=== PATIENT | female | born 1990 | race African-American/Black ===

== ENCOUNTER 2019-05-22 09:41 | Inpatient (IN) ==
[2019-05-22] MEDS ORDERED: NS 1,000 ML IV ONE ×4 (10:15→17:27)
[2019-05-22 10:38] LABS: AMYLASE 127 U/L (20-200); LIPASE 14 U/L (13-60)
[2019-05-22 10:42] LABS: BASO# 0.01 X1000 (0.0-0.2); HEMATOCRIT 34.9 % (37.0-47.0); HEMOGLOBIN 12.1 g/dL (12.0-16.0); IMM GRAN# 0.07 X1000 (0.0-0.04); IMM GRAN% 0.3 % (0.0-0.5); LYMPH% 5.6 % (20.5-51.1); MCH 28.5 PG (27-31); MCHC 34.7 g/dL (33-37); MCV 82.1 FL (81-99); MONO# 0.71 X1000 (0.11-0.59); MONO% 3.3 % (1.7-9.3); MPV 10.8 FL (7.4-10.4); NEUT# 19.25 X1000 (1.4-6.5); NEUT% 90.8 % (42.2-75.2); PLT 346 X1000 (130-400); RBC 4.25 XMIL (4.2-5.4); RDW 12.2 % (11.5-14.5); WBC 21.24 X1000 (4.8-10.8)
[2019-05-22 10:45] LABS: CHLORIDE 99 mmol/L (98-107); POTASSIUM 3.4 mmol/L (3.5-5.1); SODIUM 134 mmol/L (136-145)
[2019-05-22 11:03] LABS: AGAP 14; ALB/GLOB RATIO 1.2; ALBUMIN 3.9 g/dL (3.5-5.0); ALKALINE PHOSPHATASE 38 U/L (32-104); BUN 8 mg/dL (8-22); CALCIUM 9.3 mg/dL (8.8-10.2); COSMO 268; CREATININE 0.7 mg/dL (0.5-0.9); GLUCOSE 121 mg/dL (70-104); GOT 19 U/L (10-30); GPT 13 U/L (10-36); TCO2 21 mmol/L (25-35); TOTAL PROTEIN 7.2 g/dL (6.3-8.3)
[2019-05-22] MEDS ORDERED: SODIUM CHLORIDE 0.9% INJ ONE (11:08)
[2019-05-22] MEDS ORDERED: TYLENOL PO ONE (11:08)
[2019-05-22] MEDS ORDERED: PHENERGAN IV ONE (11:08)
--- NOTE | 2019-05-22 12:24 | Diag Imaging Result Doc PS360 ---
EXAM: US OBS COMPLETE < 14 WKS 05/22/2019 HISTORY: abd pain TECHNIQUE: Endovaginal scan COMMENT: There is an intrauterine gestational sac with yolk sac and fetus. The crown-rump length is consistent with a gestational age of nine weeks five days +/- 5 days. The heart rate is 156 bpm. By history the right ovary is surgically absent. There are no abnormal fluid collections. The left ovary contains multiple follicles but is otherwise normal in appearance. IMPRESSION: Viable intrauterine gestation at nine weeks five days by ultrasound, RAJ 12/20/2019. Electronically signed by Xavier Woods 05/22/2019 12:22 PM
--- NOTE | 2019-05-22 12:50 | PROVIDER DOCUMENTATION ---
This chart was entered by Jeremías Brown Scribe, acting as scribe for Jn Lawrence DO. HPI-Abdominal Pain/GI Problem - General Chief Complaint: Chest Pain Stated Complaint: CP,ABD PAIN,VOMITING,9 WKS Time Seen by Provider: 05/22/19 10:05 Allergies/Adverse Reactions: Patient Allergies Allergy/AdvReac Type Severity Reaction Status Date / Time ibuprofen Allergy Mild HIVES Verified 05/22/19 10:16 Home Medications: Home Medication List Medication Instructions Recorded Confirmed Last Taken Type Ondansetron Odt [Zofran 4 mg Odt] 4 mg PO Q6H PRN PRN #10 tab 05/20/19 05/22/19 Unknown Rx Pnv No.95/Ferrous Fum/Folic AC 1 ea PO DAILY 05/22/19 05/22/19 Unknown History [ Vitamin Tablet] Promethazine [Phenergan] 25 mg PO Q6H PRN PRN 05/22/19 05/22/19 Unknown History - History of Present Illness-ABD Nature of Presenting Problems: Ms Sarah is 28 yo F who c/o of Nausea and Vomiting for 3 weeks. She states she is 9 weeks with this her third and is taking Zofran and Phenergan. She reports 5 or more episodes of vomiting per day and says today she has vomited 7 times today. She also reports some Chest Pain that is worse with deep breathing. She says her stomach is achy. She denies fever. She reports her OB said come to the ER for IV fluid therapy. Abdominal Pain Onset Location: reports: generalized abdomen Pain Radiation: reports: no radiation Quality of Pain: reports: aching Severity in ED: reports: mild Onset/Duration: reports: other (3 weeks) Timing: reports: still present Activities at Onset: reports: none Exposure to sick contacts?: No Modifying Factors: improves with: nothing Associated Symptoms: reports: chest pain, diarrhea (loose stools), nausea, vomiting. denies: dizziness, fever/chills, sinus congestion/drainage, rash Review of Systems - Adult - REVIEW OF SYSTEMS - ADULT Constitutional: denies: chills, fever Eyes: reports: no symptoms reported Ears, Nose, Mouth & Throat: reports: no symptoms reported Cardiovascular: reports: chest pain. denies: edema, palpitations Respiratory: denies: cough, shortness of breath, wheezing Gastrointestinal: reports: abdominal pain, nausea, vomiting. denies: diarrhea Genitourinary: denies: dysuria, flank pain, urinary retention Musculoskeletal: denies: back pain, neck pain Integumentary: denies: hair loss, itching Neurological: denies: dizziness/vertigo, headache/migraines Psychiatric: reports: no symptoms reported Endocrine: reports: no symptoms reported Hematologic/Lymphatic: reports: no symptoms reported Allergic/Immunologic: reports: no symptoms reported All Other Systems: Reviewed and Negative Past History - Adult - PAST MEDICAL HISTORY-ADULT Review of Records: reports: Old Records Reviewed, Nursing Assessment Review, Medications Reviewed Major Childhood Illnesses: reports: denies history Cardiovascular: reports: denies history Respiratory: reports: denies history Gastrointestinal: reports: other (hyperemesis) Obstetrical/Gynecological: reports: denies history Genitourinary: reports: denies history Musculoskeletal: reports: denies history Neurological: reports: denies history Psychiatric: reports: denies history Endocrine/Immune: reports: denies history Other Conditions: reports: denies history Additional History: ovarian cysts; early cervical CA - PRIOR SURGERIES/PROCEDURES Surgical/Procedure History: reports: other (oopherectomy) - IMMUNIZATION STATUS Childhood Immunizations: See Nurse Assessment Flu Vaccine: See Nurse Assessment - FAMILY HISTORY Family History: reviewed, not pertinent - SOCIAL HISTORY Smoking: non-smoker Substance Use: none/never Living Situation: family Physical Exam-General - PHYSICAL EXAM-ADULT Initial Vital Signs Reviewed: Yes - CONSTITUTIONAL General Appearance: appears well, alert, no apparent distress - EYES Eyes: PERRL/EOMI, pink conjunctivae - HEAD, EARS, NOSE, MOUTH & THROAT HENMT: moist mucous membranes, normal ENT inspection - NECK Neck: non-tender, full range of motion, supple, normal inspection - RESPIRATORY Respiratory: lungs clear, normal breath sounds, no pleuratic chest pain, no respiratory distress, no accessory muscle use. negative: chest non-tender (Left chest wall tender to palpation) - CARDIOVASCULAR Cardiovascular: normal peripheral pulses, regular rate, rhythm - GASTROINTESTINAL (ABDOMEN) Abdominal Exam: normal bowel sounds, soft - MUSCULOSKELETAL Back Exam: normal inspection, no CVA tenderness, no vertebral tenderness Extremity: normal range of motion, non-tender, normal gait, normal inspection - SKIN Integumentary: normal color, normal turgor, warm/dry - NEUROLOGIC Neurologic: grossly normal, no motor/sensory deficits - PSYCHIATRIC Psych/Mental Status: normal mood/affect, normal thought content, normal thought process, oriented x 3 Progress - PLAN OF CARE/RESULTS Progress/Plan/Lab Results: Vital Signs - 8 hr 05/22/19 09:49 Temperature 99.8 F H Pulse Rate 70 Respiratory Rate 18 Blood Pressure 128/42 O2 Sat by Pulse Oximetry 99 Result Diagrams: 05/22/19 10:09 05/22/19 10:09 - EKG 1 Time of EKG reading by physician:: 09:55 EKG Read and Signed by:: Jn Lawrence EKG Interpretation (*Must complete 3 of following elements*): Abnormal Rate: 66 Rhythm: Sinus with sinus arrhythmia with short VT Comments: oterwise normal - ULTRASOUND (By Radiology) 1 US Study: Pelvic Impression: Normal ( EXAM: US OBS COMPLETE < 14 WKS 05/22/2019 HISTORY: abd pain TECHNIQUE: Endovaginal scan COMMENT: There is an intrauterine gestational sac with yolk sac and fetus. The crown-rump length is consistent with a gestational age of nine weeks five days +/- 5 days. The heart rate is 156 bpm. By history the right ovary is surgically absent. There are no abnormal fluid collections. The left ovary contains multiple follicles but is otherwise normal in appearance. IMPRESSION: Viable intrauterine gestation at nine weeks five days by ultrasound, RAJ 12/20/2019. Electronically signed by Xavier Woods 05/22/2019 12:22 PM 05/22/19 1222 Interpreting Physician: Xavier Woods MD Dictated Date/Time: 05/22/19 1220 cc: Jn Lawrence DO; None,PCP) - CONSULTS/PCP/HOSPITALIST Notification #1 *Consult/PCP/Hospitalist*: Hospitalist spoke with Gina MOREIRA Time Discussed: 11:26 Reason/Comments: Admission Consult Disposition: Admit (Request to speak with OB first) #2 Consult: OB- Time Discussed: 11:30 Reason/Comments: Plan of Care with review of HPI Consult Disposition: other (Request Ultrasound) Departure - Departure Date of Disposition Decision: 05/22/19 Time of Disposition Decision: 12:49 DIAGNOSIS: Enteritis, Hyperemesis gravidarum Disposition: ADMITTED INPATIENT 09 Certified Medical Emergency: Emergent Condition: Fair Referrals and Follow-Ups: None,PCP [Primary Care Provider] - - Critical Care Note This patient required my direct & personal management of CC.: No Attestation - Physician/ BABS Attestation Patient care was provided by Advanced Practice Provider:: No The physician spent face to face time with patient:: Yes Advanced Practice Provider documentation review:: Supervising physician onsite and consulted in the evaluation and care of this patient. The physician did have a face to face encounter with the patient. This chart was documented by the indicated scribe, (Jeremías Brown Scribe) and accurately reflects the services I performed and decisions made by me, Jn Lawrence DO, as attested by the provider's signature.
[2019-05-22 14:42] LABS: INR 1.04; PROTIME 13.8 Seconds (11.0-16.0)
[2019-05-22 14:43] LABS: PTT 24.3 Seconds (22.3-41.8)
[2019-05-22] MEDS: ZOFRAN IV PRN ×2 (14:43→20:40)
[2019-05-22] MEDS: ZANTAC 50 MG in NS 50 ML IV SCH (18:09)
--- NOTE | 2019-05-22 18:51 | HISTORY AND PHYSICAL ---
The patient is a 28-year-old 3, para 2, at 9 weeks gestation who presents to the emergency room complaining of nausea and vomiting for 3 weeks, abdominal pain and epigastric pain. She was evaluated, found to have a specific gravity of 1.030, found to have a white count of 2100 with a left shift, other labs relatively normal and she was unable to void. I saw her 10 hours later. She was afebrile in the emergency room. She experienced none of these complaints in her 1st 2 pregnancies. PREVIOUS MEDICAL HISTORY: Negative. PREVIOUS SURGICAL HISTORY: Is pertinent for cystectomy followed by an oophorectomy for ovarian cyst disease several years ago. OB HISTORY: Pertinent for 2 vaginal deliveries uncomplicated pregnancies. VISCOSITY INSPECTOR HISTORY: Is unremarkable. FAMILY HISTORY: Noncontributory. SOCIAL HISTORY: Positive for tobacco. No alcohol or drugs. MEDICINES: vitamins, Phenergan and ODT Zofran. ALLERGIES: Ibuprofen. PHYSICAL EXAM: This is well-developed, thin woman appearing her stated age. Skin is without turgor. Capillary reflex is slow. HEENT: Grossly normal. ABDOMEN: Soft throughout. Point of maximal tenderness is the epigastric area and some pelvic crampiness. No masses. Positive for tympany. No bladder distention. EXTREMITIES: Without clubbing, cyanosis, or edema. LUNGS: Are unlabored breathing. HEART: Regular rate and rhythm. ASSESSMENT: A 28-year-old 3, para 2, 9 weeks gestation with epigastric pain, 3-week history of nausea, vomiting, recalcitrant to Phenergan and Zofran. 1. Dehydration. Physical exam indicates dehydration. The patient has been unable to void since presented to the emergency room early this morning. Currently fluids were running at 125. I bolused a liter of fluid and will run overnight at 175 and reevaluate in the morning. Will start Zofran IV and Zantac IV for epigastric pain. 2. Nutrition status is guarded, states she has been unable to eat for 3 weeks. She is currently 102 pounds with body mass index of 18.6 from her visit on 05/18. 3. Hospital observation. Repeat CBC in the a.m.
[2019-05-22] MEDS: NS 1,000 ML IV SCH (20:40)
[2019-05-23] MEDS: ZANTAC 50 MG in NS 50 ML IV SCH (00:59)
[2019-05-23] MEDS: NS 1,000 ML IV SCH ×4 (00:59→22:04)
[2019-05-23] MEDS: ZOFRAN IV PRN ×4 (04:57→19:56)
[2019-05-23 05:33] LABS: URINE SOURCE CLEAN CATCH
[2019-05-23 06:10] LABS: BILIRUBIN URINE NEGATIVE (NEGATIVE); BLOOD URINE NEGATIVE (NEGATIVE); COLOR YELLOW; GLUCOSE URINE NEGATIVE (NEGATIVE); KETONE URINE >150 mg/dL (NEGATIVE); LEUKOCYTES URINE NEGATIVE (NEGATIVE); NITRITE URINE NEGATIVE (NEGATIVE); PROTEIN URINE TRACE mg/dL (NEGATIVE); SP GRAVITY URINE 1.021; TURBIDITY URINE HAZY (CLEAR); UROBILINOGEN URINE NORMAL (NORMAL)
[2019-05-23 07:05] LABS: URINE BACTERIA NEGATIVE /HPF; URINE RBC <10 /HPF (<10); URINE WBC <10 /HPF (<10)
[2019-05-23 07:37] LABS: URINE CASTS NONE SEEN; URINE CRYSTALS NONE SEEN; URINE SMALL ROUND CELLS NONE SEEN; URINE YEAST NONE SEEN
[2019-05-23 07:38] LABS: UR EPITHELIAL CELLS <10 /HPF (<10)
[2019-05-23 07:43] LABS: BASO# 0.02 X1000 (0.0-0.2); BASO% 0.1 % (0.0-0.8); EOS# 0.01 X1000 (0.0-0.7); EOS% 0.1 % (0.0-10.0); HEMOGLOBIN 10.4 g/dL (12.0-16.0); IMM GRAN# 0.04 X1000 (0.0-0.04); IMM GRAN% 0.3 % (0.0-0.5); LYMPH% 18.2 % (20.5-51.1); MCH 28.3 PG (27-31); MCHC 33.5 g/dL (33-37); MCV 84.5 FL (81-99); MONO# 0.87 X1000 (0.11-0.59); MONO% 5.7 % (1.7-9.3); MPV 11.1 FL (7.4-10.4); NEUT# 11.63 X1000 (1.4-6.5); NEUT% 75.6 % (42.2-75.2); PLT 281 X1000 (130-400); RBC 3.67 XMIL (4.2-5.4); RDW 12.4 % (11.5-14.5); WBC 15.37 X1000 (4.8-10.8)
--- NOTE | 2019-05-23 07:56 | OB/GYN PROGRESS NOTE ---
- Subjective HD1 vssaf abd s/sl tender throughout, no distention, rebound or gaurding ext no CCE skin dry, turgor improved WBC 22+, now 15. L shift nearly resolved A IUP 9wks w/ N/V/dehydration and elevated wbc ct 1. continues w/N/V, continue hydration 2. continue epigastric cx, switch Zantac to Protonix 3. WBC resolving, continue obs. OB Physical Exam Vital Signs - 8 hr 05/22/19 23:53 05/23/19 04:00 Temperature 98.4 F 98.2 F Pulse Rate 70 64 Respiratory Rate 20 20 Blood Pressure 135/71 99/63 O2 Sat by Pulse Oximetry 100 100 - CONSTITUTIONAL General Appearance: appears well, no apparent distress Active Medications Generic Name Dose Route Start Last Admin Trade Name Freq PRN Reason Stop Dose Admin Acetaminophen 650 mg 05/23/19 07:23 Tylenol [place] Q4H PRN PRN Pain Sodium Chloride 1,000 mls @ 175 mls/hr 05/22/19 20:00 05/23/19 00:59 Ns IV 175 mls/hr .Q5H43M CROW Administration Ondansetron HCl 4 mg 05/22/19 13:24 05/23/19 04:57 Zofran IV 4 mg Q4H PRN PRN Administration Nausea And Vomiting Pantoprazole Sodium 40 mg 05/23/19 07:30 Protonix IV Q12H [facility] Protocol Sodium Chloride 10 ml 05/23/19 07:30 Sodium Chloride 0.9% INJ DIRECTED [facility] Laboratory Results - last 24 hr 05/22/19 05/22/19 05/22/19 05:20 10:09 10:09 WBC RBC Hgb Hct MCV MCH MCHC RDW Std Deviation Plt Count MPV Immature Gran % (Auto) Neut % (Auto) Lymph % (Auto) [place] % (Auto) Eos % (Auto) Baso % (Auto) Immature Gran # (Auto) Neut # (Auto) Lymph # (Auto) [place] # (Auto) Eos # (Auto) Baso # (Auto) PT INR PTT (Actin FS) Sodium 134 L Potassium 3.4 L Chloride 99 Carbon Dioxide 21 L Anion Gap 14 BUN 8 Creatinine 0.7 BUN/Creatinine Ratio 11 Glucose 121 H Calculated Osmolality 268 Calcium 9.3 Magnesium Total Bilirubin 0.50 AST 19 ALT 13 Alkaline Phosphatase 38 Creatine Kinase Troponin T High Sens Total Protein 7.2 Albumin 3.9 Globulin 3.3 Albumin/Globulin Ratio 1.2 Amylase 127 Lipase 14 Plasma Lactate Ser , Semi-Qnt Urine Source CLEAN CATCH Urine Color YELLOW Urine Turbidity HAZY Urine pH 6.0 Ur Specific [place] 1.021 Urine Protein TRACE A Ur Glucose (Stick) NEGATIVE Ur Ketones (Stick) >150 Urine Blood NEGATIVE Urine Nitrite NEGATIVE Urine Bilirubin NEGATIVE Urobilinogen Dipstick NORMAL Urine Leukocytes NEGATIVE Urine WBC (Auto) <10 Urine RBC (Auto) <10 U Epithel Cells (Auto) <10 Urine Bacteria (Auto) NEGATIVE Urine Crystals NONE SEEN Small Round Cells NONE SEEN Urine Casts NONE SEEN Urine Yeast-like Cells NONE SEEN 05/22/19 05/22/19 05/22/19 10:09 10:09 10:09 WBC 21.24 H RBC 4.25 Hgb 12.1 Hct 34.9 L MCV 82.1 MCH 28.5 MCHC 34.7 RDW Std Deviation 12.2 Plt Count 346 MPV 10.8 H Immature Gran % (Auto) 0.3 Neut % (Auto) 90.8 H Lymph % (Auto) 5.6 L [place] % (Auto) 3.3 Eos % (Auto) 0.0 Baso % (Auto) 0.0 Immature Gran # (Auto) 0.07 H Neut # (Auto) 19.25 H Lymph # (Auto) 1.20 [place] # (Auto) 0.71 H Eos # (Auto) 0.00 Baso # (Auto) 0.01 PT INR PTT (Actin FS) Sodium Potassium Chloride Carbon Dioxide Anion Gap BUN Creatinine BUN/Creatinine Ratio Glucose Calculated Osmolality Calcium Magnesium Total Bilirubin AST ALT Alkaline Phosphatase Creatine Kinase 47 Troponin T High Sens Total Protein Albumin Globulin Albumin/Globulin Ratio Amylase Lipase Plasma Lactate Ser , Semi-Qnt 913239.0 Urine Source Urine Color Urine Turbidity Urine pH Ur Specific [place] Urine Protein Ur Glucose (Stick) Ur Ketones (Stick) Urine Blood Urine Nitrite Urine Bilirubin Urobilinogen Dipstick Urine Leukocytes Urine WBC (Auto) Urine RBC (Auto) U Epithel Cells (Auto) Urine Bacteria (Auto) Urine Crystals Small Round Cells Urine Casts Urine Yeast-like Cells 05/22/19 05/22/19 05/22/19 10:09 10:09 10:09 WBC RBC Hgb Hct MCV MCH MCHC RDW Std Deviation Plt Count MPV Immature Gran % (Auto) Neut % (Auto) Lymph % (Auto) [place] % (Auto) Eos % (Auto) Baso % (Auto) Immature Gran # (Auto) Neut # (Auto) Lymph # (Auto) [place] # (Auto) Eos # (Auto) Baso # (Auto) PT 13.8 INR 1.04 PTT (Actin FS) 24.3 Sodium Potassium Chloride Carbon Dioxide Anion Gap BUN Creatinine BUN/Creatinine Ratio Glucose Calculated Osmolality Calcium Magnesium 1.9 Total Bilirubin AST ALT Alkaline Phosphatase Creatine Kinase Troponin T High Sens 6 Total Protein Albumin Globulin Albumin/Globulin Ratio Amylase Lipase Plasma Lactate Ser , Semi-Qnt Urine Source Urine Color Urine Turbidity Urine pH Ur Specific [place] Urine Protein Ur Glucose (Stick) Ur Ketones (Stick) Urine Blood Urine Nitrite Urine Bilirubin Urobilinogen Dipstick Urine Leukocytes Urine WBC (Auto) Urine RBC (Auto) U Epithel Cells (Auto) Urine Bacteria (Auto) Urine Crystals Small Round Cells Urine Casts Urine Yeast-like Cells 05/22/19 05/22/19 05/22/19 15:10 17:24 20:26 WBC RBC Hgb Hct MCV MCH MCHC RDW Std Deviation Plt Count MPV Immature Gran % (Auto) Neut % (Auto) Lymph % (Auto) [place] % (Auto) Eos % (Auto) Baso % (Auto) Immature Gran # (Auto) Neut # (Auto) Lymph # (Auto) [place] # (Auto) Eos # (Auto) Baso # (Auto) PT INR PTT (Actin FS) Sodium Potassium Chloride Carbon Dioxide Anion Gap BUN Creatinine BUN/Creatinine Ratio Glucose Calculated Osmolality Calcium Magnesium Total Bilirubin AST ALT Alkaline Phosphatase Creatine Kinase Troponin T High Sens Total Protein Albumin Globulin Albumin/Globulin Ratio Amylase Lipase Plasma Lactate 1.1 0.8 0.6 Ser , Semi-Qnt Urine Source Urine Color Urine Turbidity Urine pH Ur Specific [place] Urine Protein Ur Glucose (Stick) Ur Ketones (Stick) Urine Blood Urine Nitrite Urine Bilirubin Urobilinogen Dipstick Urine Leukocytes Urine WBC (Auto) Urine RBC (Auto) U Epithel Cells (Auto) Urine Bacteria (Auto) Urine Crystals Small Round Cells Urine Casts Urine Yeast-like Cells 05/23/19 06:47 WBC 15.37 H RBC 3.67 L Hgb 10.4 L Hct 31.0 L MCV 84.5 MCH 28.3 MCHC 33.5 RDW Std Deviation 12.4 Plt Count 281 MPV 11.1 H Immature Gran % (Auto) 0.3 Neut % (Auto) 75.6 H Lymph % (Auto) 18.2 L [place] % (Auto) 5.7 Eos % (Auto) 0.1 Baso % (Auto) 0.1 Immature Gran # (Auto) 0.04 Neut # (Auto) 11.63 H Lymph # (Auto) 2.80 [place] # (Auto) 0.87 H Eos # (Auto) 0.01 Baso # (Auto) 0.02 PT INR PTT (Actin FS) Sodium Potassium Chloride Carbon Dioxide Anion Gap BUN Creatinine BUN/Creatinine Ratio Glucose Calculated Osmolality Calcium Magnesium Total Bilirubin AST ALT Alkaline Phosphatase Creatine Kinase Troponin T High Sens Total Protein Albumin Globulin Albumin/Globulin Ratio Amylase Lipase Plasma Lactate Ser , Semi-Qnt Urine Source Urine Color Urine Turbidity Urine pH Ur Specific [place] Urine Protein Ur Glucose (Stick) Ur Ketones (Stick) Urine Blood Urine Nitrite Urine Bilirubin Urobilinogen Dipstick Urine Leukocytes Urine WBC (Auto) Urine RBC (Auto) U Epithel Cells (Auto) Urine Bacteria (Auto) Urine Crystals Small Round Cells Urine Casts Urine Yeast-like Cells Microbiology 05/22/19 15:10 Blood Culture - Preliminary Blood 05/22/19 15:15 Blood Culture - Preliminary Blood 05/22/19 10:57 Influenza Screen - Final Nasopharyngeal
[2019-05-23] MEDS: SODIUM CHLORIDE 0.9% INJ SCH (08:34)
[2019-05-23] MEDS: PROTONIX IV SCH ×2 (08:34→19:23)
[2019-05-23] MEDS: TYLENOL PR PRN ×4 (08:34→19:56)
[2019-05-23] MEDS ORDERED: AMBIEN PO ONE (18:59)
[2019-05-24] MEDS: TYLENOL PR PRN ×4 (00:55→19:24)
[2019-05-24] MEDS: ZOFRAN IV PRN ×3 (00:55→12:22)
[2019-05-24] MEDS: SODIUM CHLORIDE 0.9% INJ SCH (08:11)
[2019-05-24] MEDS: PROTONIX IV SCH ×2 (08:11→22:42)
[2019-05-24 09:49] LABS: BASO# 0.02 X1000 (0.0-0.2); BASO% 0.2 % (0.0-0.8); EOS# 0.01 X1000 (0.0-0.7); EOS% 0.1 % (0.0-10.0); HEMATOCRIT 28.4 % (37.0-47.0); HEMOGLOBIN 9.7 g/dL (12.0-16.0); IMM GRAN# 0.04 X1000 (0.0-0.04); IMM GRAN% 0.3 % (0.0-0.5); LYMPH# 1.92 X1000 (1.2-3.4); LYMPH% 15.6 % (20.5-51.1); MCH 28.4 PG (27-31); MCHC 34.2 g/dL (33-37); MCV 83.3 FL (81-99); MONO# 0.74 X1000 (0.11-0.59); MPV 10.9 FL (7.4-10.4); NEUT% 77.8 % (42.2-75.2); PLT 249 X1000 (130-400); RBC 3.41 XMIL (4.2-5.4); RDW 11.9 % (11.5-14.5); WBC 12.33 X1000 (4.8-10.8)
[2019-05-24] MEDS: NS 1,000 ML IV SCH ×6 (10:15→23:38)
[2019-05-24 16:26] LABS: AGAP 9; BUN 1 mg/dL (8-22); CALCIUM 7.9 mg/dL (8.8-10.2); CHLORIDE 103 mmol/L (98-107); COSMO 254; CREATININE 0.4 mg/dL (0.5-0.9); ESTIMATED GFR > 60; GLUCOSE 88 mg/dL (70-104); POTASSIUM 2.6 mmol/L (3.5-5.1); SODIUM 129 mmol/L (136-145); TCO2 17 mmol/L (25-35)
[2019-05-24] MEDS ORDERED: PHENERGAN IV PRN (17:37)
[2019-05-24] MEDS ORDERED: POTASSIUM CHLORIDE 40 MEQ in D5 NS 1,000 ML IV SCH (17:45)
[2019-05-24] MEDS: SODIUM CHLORIDE 0.9% INJ PRN (18:57)
[2019-05-24] MEDS: POTASSIUM CHLORIDE 20 MEQ/SWI 20 MEQ/100 ML IVPB IV SCH ×2 (18:58→22:41)
[2019-05-25] MEDS: POTASSIUM CHLORIDE 20 MEQ/SWI 20 MEQ/100 ML IVPB IV SCH (00:50)
[2019-05-25] MEDS: NS 1,000 ML IV SCH ×2 (04:46→10:47)
--- NOTE | 2019-05-25 07:23 | PROVIDER PROGRESS NOTE ---
- Subjective Ms. Sarah is a 28YOBF at 9 weeks gestation that presented to [facility] for inability to keep anything down for the past 3 weeks. Today she feels better with her last vomitting episode being 8pm last night. This is the longest she's gone without vomitting for the past 3 weeks. Vomitus was intermittently mildly bloody at home, but no blood in vomitus during admission. Pt reports chills, dizziness upon standing, weakness, abd pain localized to lower abdomen and mid epigastric region, heart burn, N/V. Pt denies diarrhea and sx at this time, but reports diarrhea just before emesis started. Currently BMs irregular. Pt also denies sick contacts, viral prodrome, or infectious etiology prior to sx onset or currently. Physical Exam Objective Vital Signs - 8 hr 05/24/19 23:44 05/25/19 04:18 Temperature 98.9 F 99.0 F Pulse Rate 66 66 Respiratory Rate 18 16 Blood Pressure 98/53 113/64 O2 Sat by Pulse Oximetry 100 99 - Constitutional General Appearance: no apparent distress, thin - HEAD, EARS, NOSE, MOUTH & THROAT HENMT: normocephalic/atraumatic - NECK Neck: normal inspection - RESPIRATORY Respiratory: lungs clear, normal breath sounds, no respiratory distress - CARDIOVASCULAR Cardiovascular: normal peripheral pulses, regular rate, rhythm, no edema, no gallop, no murmur, other (capillary refill 3s.) - GASTROINTESTINAL (ABDOMEN) Abdominal Exam: normal bowel sounds, tenderness (diffuse abdominal tenderness. no guarding.) - MUSCULOSKELETAL Extremity: no pedal edema - SKIN Integumentary: normal color, normal turgor, diaphoresis Active Medications Generic Name Dose Route Start Last Admin Trade Name Freq PRN Reason Stop Dose Admin Acetaminophen 650 mg 05/23/19 07:23 05/24/19 19:24 Tylenol [place] 650 mg Q4H PRN PRN Administration Pain Sodium Chloride 1,000 mls @ 175 mls/hr 05/22/19 20:00 05/25/19 04:46 Ns IV 175 mls/hr .Q5H43M CROW Administration Ondansetron HCl 4 mg 05/25/19 07:15 Zofran IV Q4H PRN CROW Pantoprazole Sodium 40 mg 05/23/19 07:30 05/24/19 22:42 Protonix IV 40 mg Q12H CROW Administration Protocol Promethazine HCl 25 mg 05/25/19 07:01 Phenergan IV Q4H PRN CROW Sodium Chloride 10 ml 05/23/19 07:30 05/24/19 08:11 Sodium Chloride 0.9% INJ 10 ml DIRECTED CROW Administration Sodium Chloride 10 ml 05/24/19 17:37 05/24/19 18:57 Sodium Chloride 0.9% INJ 10 ml PRN PRN Administration Dilute Phenergan for IV use Laboratory Results - last 24 hr 05/24/19 05/24/19 09:22 15:25 WBC 12.33 H RBC 3.41 L Hgb 9.7 L Hct 28.4 L MCV 83.3 MCH 28.4 MCHC 34.2 RDW Std Deviation 11.9 Plt Count 249 MPV 10.9 H Immature Gran % (Auto) 0.3 Neut % (Auto) 77.8 H Lymph % (Auto) 15.6 L [place] % (Auto) 6.0 Eos % (Auto) 0.1 Baso % (Auto) 0.2 Immature Gran # (Auto) 0.04 Neut # (Auto) 9.60 H Lymph # (Auto) 1.92 [place] # (Auto) 0.74 H Eos # (Auto) 0.01 Baso # (Auto) 0.02 Sodium 129 L Potassium 2.6 L Chloride 103 Carbon Dioxide 17 L Anion Gap 9 BUN 1 L Creatinine 0.4 L Estimated GFR/1.73 m2 > 60 BUN/Creatinine Ratio 3 Glucose 88 Calculated Osmolality 254 Calcium 7.9 L Microbiology 05/22/19 15:15 Blood Culture - Preliminary Blood NO GROWTH AFTER 48 HOURS 05/22/19 15:10 Blood Culture - Preliminary Blood NO GROWTH AFTER 48 HOURS - Assessment & Plan (1) Hyperemesis gravidarum Status: Acute Plan: Pt states improved sx today, but still unable to keep food down. Continue IVF resuscitation. Correct electrolyte imbalance with KCl, Magnesium sulfate and NS. Increase anti-emetic frequency for more aggressive N/V tx. NPO and progress to BRAT diet with Trang omer as tolerated. PPI for heartburn sx.
[2019-05-25 07:42] LABS: AGAP 8; ALB/GLOB RATIO 1.3; ALBUMIN 2.6 g/dL (3.5-5.0); ALKALINE PHOSPHATASE 27 U/L (32-104); BUN 1 mg/dL (8-22); CALCIUM 7.7 mg/dL (8.8-10.2); CHLORIDE 110 mmol/L (98-107); COSMO 267; CREATININE 0.5 mg/dL (0.5-0.9); ESTIMATED GFR > 60; GLUCOSE 82 mg/dL (70-104); GOT 159 U/L (10-30); GPT 214 U/L (10-36); MAGNESIUM 1.4 mg/dL (1.5-2.7); POTASSIUM 3.1 mmol/L (3.5-5.1); SODIUM 136 mmol/L (136-145); TCO2 18 mmol/L (25-35); TOTAL PROTEIN 4.6 g/dL (6.3-8.3)
[2019-05-25 07:51] LABS: BASO# 0.03 X1000 (0.0-0.2); BASO% 0.3 % (0.0-0.8); EOS# 0.03 X1000 (0.0-0.7); EOS% 0.3 % (0.0-10.0); HEMATOCRIT 25.8 % (37.0-47.0); HEMOGLOBIN 8.7 g/dL (12.0-16.0); IMM GRAN# 0.02 X1000 (0.0-0.04); IMM GRAN% 0.2 % (0.0-0.5); MCH 28.2 PG (27-31); MCHC 33.7 g/dL (33-37); MCV 83.5 FL (81-99); MONO# 0.61 X1000 (0.11-0.59); MONO% 6.5 % (1.7-9.3); MPV 11.1 FL (7.4-10.4); NEUT# 5.52 X1000 (1.4-6.5); NEUT% 58.7 % (42.2-75.2); PLT 240 X1000 (130-400); RBC 3.09 XMIL (4.2-5.4); RDW 11.9 % (11.5-14.5); WBC 9.41 X1000 (4.8-10.8)
[2019-05-25] MEDS: PHENERGAN IV SCH ×4 (10:47→23:23)
[2019-05-25] MEDS: TYLENOL PR PRN ×2 (10:47→23:10)
[2019-05-25] MEDS: SODIUM CHLORIDE 0.9% INJ PRN ×2 (10:47→23:23)
[2019-05-25] MEDS: SODIUM CHLORIDE 0.9% INJ SCH ×2 (10:48→21:40)
[2019-05-25] MEDS: PROTONIX IV SCH ×2 (10:48→21:40)
[2019-05-25] MEDS ORDERED: MAGNESIUM SULFATE 2 GM/S.W.I. 2 GM/50 ML IVPB IV ONE ×2 (10:56→12:00)
[2019-05-25] MEDS ORDERED: NS + KCL 40 MEQ 1,000 ML IV SCH ×2 (11:00→13:00)
[2019-05-25] MEDS ORDERED: VENOFER 500 MG in NS 250 ML IV ONE (12:00)
[2019-05-25] MEDS: ZOFRAN IV SCH ×3 (12:51→21:16)
[2019-05-25] MEDS ORDERED: BLISTEX MEDICATED BERRY LIP BALM TOP PRN (18:48)
[2019-05-25 23:11] LABS: AGAP 14; ALB/GLOB RATIO 1.2; ALBUMIN 2.8 g/dL (3.5-5.0); ALKALINE PHOSPHATASE 30 U/L (32-104); BUN 2 mg/dL (8-22); CALCIUM 7.8 mg/dL (8.8-10.2); CHLORIDE 110 mmol/L (98-107); COSMO 271; CREATININE 0.6 mg/dL (0.5-0.9); ESTIMATED GFR > 60; GLUCOSE 57 mg/dL (70-104); GOT 121 U/L (10-30); GPT 233 U/L (10-36); MAGNESIUM 1.9 mg/dL (1.5-2.7); POTASSIUM 3.4 mmol/L (3.5-5.1); SODIUM 139 mmol/L (136-145); TCO2 15 mmol/L (25-35); TOTAL BILIRUBIN 0.33 mg/dL (0.20-1.00); TOTAL PROTEIN 5.1 g/dL (6.3-8.3)
[2019-05-26] MEDS: ZOFRAN IV SCH ×4 (01:16→13:59)
[2019-05-26] MEDS: D5 LR IV SCH ×4 (02:06→20:30)
[2019-05-26] MEDS: POTASSIUM CHLORIDE IV SCH ×4 (02:06→20:30)
[2019-05-26] MEDS: NS 1,000 ML IV SCH (02:16)
[2019-05-26] MEDS: SODIUM CHLORIDE 0.9% INJ PRN (03:34)
[2019-05-26] MEDS: PHENERGAN IV SCH ×3 (03:34→12:12)
[2019-05-26] MEDS: SODIUM CHLORIDE 0.9% INJ SCH ×3 (07:50→20:32)
[2019-05-26] MEDS: PROTONIX IV SCH ×2 (07:51→20:33)
--- NOTE | 2019-05-26 07:58 | OB/GYN PROGRESS NOTE ---
- Subjective Ms. Sarah is feeling better today. She denies nausea this morning, but reports vomitting last night. Vomitus consisted of gastric fluid; non-bloody. She took a few sips of joe omer last night and tolerated it. She denies any fever, chills, chest pain, SOB, sx, and calf pain. Otherwise, she has no new complaints. She is still receiving IV anti-emetics. OB Physical Exam Vital Signs - 8 hr 05/26/19 00:00 05/26/19 04:00 Temperature 98.6 F 98.7 F Pulse Rate 116 H 84 Respiratory Rate 20 20 Blood Pressure 112/82 106/66 O2 Sat by Pulse Oximetry 98 99 - CONSTITUTIONAL General Appearance: appears well, no apparent distress - HEAD, EARS, NOSE, MOUTH & THROAT HENMT: normocephalic/atraumatic - RESPIRATORY Respiratory: lungs clear, normal breath sounds, no pleuratic chest pain, no respiratory distress - CARDIOVASCULAR Cardiovascular: normal peripheral pulses, regular rate, rhythm, no edema - GASTROINTESTINAL (ABDOMEN) Abdominal Exam: tenderness (TTP lower abdomen. No RUQ nor epigastric tenderness.), other (hypoactive bowel sounds) - MUSCULOSKELETAL Extremity: no pedal edema, no calf tenderness - NEUROLOGIC Neurologic: grossly normal - PSYCHIATRIC Psych/Mental Status: normal mood/affect Active Medications Generic Name Dose Route Start Last Admin Trade Name Freq PRN Reason Stop Dose Admin Acetaminophen 650 mg 05/23/19 07:23 05/25/19 23:10 Tylenol [place] 650 mg Q4H PRN PRN Administration Pain Sodium Chloride 1,000 mls @ 175 mls/hr 05/22/19 20:00 05/26/19 02:16 Ns IV Not Given .Q5H43M CROW Potassium Chloride 30 meq/ 1,015 mls @ 175 mls/hr 05/26/19 00:30 05/26/19 02:06 Dextrose/Lactated Ringer's IV 175 mls/hr .Q5H48M CROW Administration Ondansetron HCl 4 mg 05/25/19 07:15 05/26/19 05:43 Zofran IV 4 mg Q4H PRN CROW Administration Oxybenzone/Padimate O/Dimethicone 1 gm 05/25/19 18:48 05/25/19 19:15 Blistex Medicated [place] TOP 1 tube PRN PRN Administration Dry Skin Pantoprazole Sodium 40 mg 05/23/19 07:30 05/25/19 21:40 Protonix IV 40 mg Q12H CROW Administration Protocol Promethazine HCl 25 mg 05/25/19 07:01 05/26/19 03:34 Phenergan IV 25 mg Q4H PRN CROW Administration Sodium Chloride 10 ml 05/23/19 07:30 05/25/19 21:40 Sodium Chloride 0.9% INJ 10 ml DIRECTED CROW Administration Sodium Chloride 10 ml 05/24/19 17:37 05/26/19 03:34 Sodium Chloride 0.9% INJ 10 ml PRN PRN Administration Dilute Phenergan for IV use Laboratory Results - last 24 hr 05/25/19 05/25/19 06:17 21:48 WBC 9.41 RBC 3.09 L Hgb 8.7 L Hct 25.8 L MCV 83.5 MCH 28.2 MCHC 33.7 RDW Std Deviation 11.9 Plt Count 240 MPV 11.1 H Immature Gran % (Auto) 0.2 Neut % (Auto) 58.7 Lymph % (Auto) 34.0 [place] % (Auto) 6.5 Eos % (Auto) 0.3 Baso % (Auto) 0.3 Immature Gran # (Auto) 0.02 Neut # (Auto) 5.52 Lymph # (Auto) 3.20 [place] # (Auto) 0.61 H Eos # (Auto) 0.03 Baso # (Auto) 0.03 Sodium 139 Potassium 3.4 L Chloride 110 H Carbon Dioxide 15 L Anion Gap 14 BUN 2 L D Creatinine 0.6 Estimated GFR/1.73 m2 > 60 BUN/Creatinine Ratio 3 Glucose 57 L Calculated Osmolality 271 Calcium 7.8 L Magnesium 1.9 Total Bilirubin 0.33 AST 121 H ALT 233 H Alkaline Phosphatase 30 L Total Protein 5.1 L Albumin 2.8 L Globulin 2.3 Albumin/Globulin Ratio 1.2 OB Assessment & Plan (1) Hyperemesis gravidarum Status: Acute Plan: Continue IVF and N/V medical management. LFTs acutely elevated. RUQ U/S and repeat CMP ordered stat. Will progress diet as tolerated.
--- NOTE | 2019-05-26 09:38 | Diag Imaging Result Doc PS360 ---
EXAM: US GB < RUQ (LIMITED) 05/26/2019 HISTORY: Elevated LFTs TECHNIQUE: Right upper quadrant ultrasound COMMENT: The pancreas is normal in appearance. The visualized portions of the aorta and inferior vena cava are within normal limits. There is fluid in Morison's pouch. The liver is unremarkable in appearance. There is antegrade flow in the portal vein. The gallbladder is clear and nontender. The common bile duct is not distended measuring less than 3 mm. The right kidney is without evidence of hydronephrosis or mass. It is somewhat small measuring only 9.7 cm in length. IMPRESSION: Ascites. Otherwise no evidence of acute disease. Electronically signed by Xavier Woods 05/26/2019 9:35 AM
[2019-05-26 11:43] LABS: AGAP 7; ALB/GLOB RATIO 1.1; ALBUMIN 2.3 g/dL (3.5-5.0); ALKALINE PHOSPHATASE 25 U/L (32-104); BUN 2 mg/dL (8-22); CALCIUM 7.9 mg/dL (8.8-10.2); CHLORIDE 109 mmol/L (98-107); COSMO 271; CREATININE 0.6 mg/dL (0.5-0.9); ESTIMATED GFR > 60; GLUCOSE 157 mg/dL (70-104); GOT 59 U/L (10-30); GPT 163 U/L (10-36); POTASSIUM 3.9 mmol/L (3.5-5.1); SODIUM 136 mmol/L (136-145); TCO2 20 mmol/L (25-35); TOTAL BILIRUBIN 0.21 mg/dL (0.20-1.00); TOTAL PROTEIN 4.4 g/dL (6.3-8.3)
[2019-05-26] MEDS: REGLAN PO SCH ×2 (12:12→16:20)
[2019-05-26] MEDS: PHENERGAN PO SCH (18:23)
[2019-05-26] MEDS: ZOFRAN PO SCH (20:31)
[2019-05-26] MEDS ORDERED: POTASSIUM CHLORIDE IV SCH (21:22)
[2019-05-26] MEDS ORDERED: D5 LR IV SCH (21:22)
[2019-05-27] MEDS: PHENERGAN PO SCH ×2 (00:10→06:31)
[2019-05-27] MEDS: ZOFRAN PO SCH ×2 (02:30→09:45)
[2019-05-27 04:11] VITALS: BP 111/63
[2019-05-27 06:30] LABS: BASO# 0.02 X1000 (0.0-0.2); BASO% 0.2 % (0.0-0.8); EOS# 0.05 X1000 (0.0-0.7); EOS% 0.4 % (0.0-10.0); HEMATOCRIT 28.6 % (37.0-47.0); HEMOGLOBIN 9.5 g/dL (12.0-16.0); IMM GRAN# 0.04 X1000 (0.0-0.04); IMM GRAN% 0.3 % (0.0-0.5); LYMPH% 31.4 % (20.5-51.1); MCH 27.9 PG (27-31); MCHC 33.2 g/dL (33-37); MCV 83.9 FL (81-99); MONO% 6.1 % (1.7-9.3); NEUT# 7.04 X1000 (1.4-6.5); NEUT% 61.6 % (42.2-75.2); PLT 264 X1000 (130-400); RBC 3.41 XMIL (4.2-5.4); RDW 12.8 % (11.5-14.5); WBC 11.45 X1000 (4.8-10.8)
[2019-05-27] MEDS: REGLAN PO SCH (06:31)
[2019-05-27 07:19] LABS: AGAP 7; ALB/GLOB RATIO 1.2; ALBUMIN 2.7 g/dL (3.5-5.0); ALKALINE PHOSPHATASE 33 U/L (32-104); BUN 1 mg/dL (8-22); CALCIUM 8.7 mg/dL (8.8-10.2); CHLORIDE 107 mmol/L (98-107); COSMO 270; CREATININE 0.5 mg/dL (0.5-0.9); ESTIMATED GFR > 60; GLUCOSE 107 mg/dL (70-104); GOT 35 U/L (10-30); GPT 137 U/L (10-36); POTASSIUM 3.8 mmol/L (3.5-5.1); SODIUM 137 mmol/L (136-145); TCO2 23 mmol/L (25-35); TOTAL BILIRUBIN 0.28 mg/dL (0.20-1.00); TOTAL PROTEIN 4.9 g/dL (6.3-8.3)
[2019-05-27] MEDS: PROTONIX IV SCH (09:48)
--- NOTE | 2019-05-28 08:43 | DISCHARGE SUMMARY ---
ADMISSION DATE: 05/22/2019 DISCHARGE DATE: 05/27/2019 HISTORY AND HOSPITAL COURSE: The patient is a 28-year-old 3, para 2, at approximately 10 weeks gestation, who was admitted through the emergency room with nausea, vomiting, dehydration and an elevated white count, presumed enteritis combined with hyperemesis of . She was admitted and given IV hydration, Phenergan and Zofran and started on a liquid diet. On hospital day #1, her white count dropped. She was a little bit more hydrated. She was able to void. On hospital day #2, she was found to have elevated liver function tests and she was started on a soft mechanical diet. On hospital day #3, her IV discontinued, on oral medications, tolerating some p.o. diet. LFTs dropping. A hepatitis panel was ordered and the patient was discharged home in stable condition. FOLLOWUP: She was asked to follow up in the office within 1 or 2 weeks but she was asked to call the office on Friday or Friday for the results of the hepatitis panel. DISCHARGE MEDICATIONS: She was given a prescription for Zofran ODT and Phenergan orally. Follow up in the office.
[2019-05-28 09:21] LABS: HEPATITIS PROFILE ACUTE SEE COMMENTS
== END 2019-05-27 11:45 | disposition home or self-care (01) | DRG 833 ==
LOC: ED 09:41 → EDIPHOLD 13:34 → 4N 16:48 → LD 05-25 11:12
PROVIDERS: ADMIT Obstetrics & Gynecology; ATTEND Obstetrics & Gynecology